=== PATIENT | female | born 1935 | race Caucasian/White ===

== ENCOUNTER 2018-03-15 10:25 | Emergency (ER) | payer OTHER, BC ==
[~2018-03-15] VITALS: Ht 157.5 cm; Wt 72.3 kg
[2018-03-15 10:30] VITALS: BP 122/66
--- NOTE | 2018-03-15 10:34 | NUR ---
Patient to bed 4. RN evaluating patient at bedside.
--- NOTE | 2018-03-15 10:35 | NUR ---
83/F BIB SON W/ C/O left wrist pain x2 days ago; denies fall or injury. hx a.fib, an xiety, HTN. L WRIST SWELLING & PAIN.AAOX4 WITH EVEN AND STEADY GAIT; LUNGS CLEAR BL. PATIENT STATES PAIN OF 9/10 AT THIS TIME. PATIENT POSITIONED FOR COMFORT; HOB ELEVATED; BEDRAILS UP X2; BED DOWN. ER MD MADE AWARE OF PT STATUS.
--- NOTE | 2018-03-15 10:37 | NUR ---
Dr. Guy evaluating patient at bedside.
[2018-03-15] MEDS ORDERED: HYDROcodone/APAP 5/325 MG 1 TAB TAB PO ONE (10:40)
--- NOTE | 2018-03-15 11:08 | NUR ---
X RAY AT BEDSIDE.
[2018-03-15 13:53] VITALS: BP 119/61
--- NOTE | 2018-03-15 13:53 | NUR ---
Patient discharged with v/s stable. Written and verbal after care instructions given and explained. Patient alert, oriented and verbalized understanding of instructions. Ambulatory with steady gait. All questions addressed prior to discharge. ID band removed. Patient advised to follow up with PMD. Rx of KEFLEX, PREDNISONE & NORCO given. Patient educated on indication of medication including possible reaction and side effects. Opportunity to ask questions provided and answered.
== END 2018-03-15 13:53 | disposition home or self-care (01) ==
LOC: MED 10:25
DX: M25.532 Pain in left wrist (principal); I10 Essential (primary) hypertension; M19.90 Unspecified osteoarthritis, unspecified site; Z88.0 Allergy status to penicillin; Z88.2 Allergy status to sulfonamides; Z90.710 Acquired absence of both cervix and uterus
CPT/HCPCS: 73110; 99284

== ENCOUNTER 2018-03-29 16:28 | Emergency (ER) | payer OTHER, BC ==
[~2018-03-29] VITALS: Ht 157.5 cm; Wt 76.7 kg
--- NOTE | 2018-03-29 16:33 | NUR ---
Patient transferred to bed 5 via wheelchair by tech. RN evaluating patient at bedside.
[2018-03-29 16:36] VITALS: BP 133/75
--- NOTE | 2018-03-29 16:45 | NUR ---
83f bib wheelchair with c/o sob x 1300 today. Patient states sob started while at home. Patient with clear speech with full sentences. RR are even and unlabored. Clear lung sounds bilaterally. Pulse ox is 95% on ra. Patient denies any cp, n/v/d, or cough. Patient is aox4. gcs=15. Skin is warm/dry/color appriopriate for ethnicity. Nonpitting edema to left lower extremitity. No acute resp distress at this time. Awaiting er md tafoya. Will continue to monitor.
[2018-03-29] MEDS ORDERED: APIX5TAB PO (16:51)
[2018-03-29] MEDS ORDERED: MAGN200T5 PO (16:51)
[2018-03-29] MEDS ORDERED: TRAM50TA1 PO (16:51)
[2018-03-29] MEDS ORDERED: VALS160T2 PO (16:51)
[2018-03-29] MEDS ORDERED: LEVA0.6318 INH (16:51)
[2018-03-29] MEDS ORDERED: METO50TA20 PO (16:51)
[2018-03-29] MEDS ORDERED: LORA-476 PO (16:51)
[2018-03-29] MEDS ORDERED: ORE25 PO (16:51)
[2018-03-29] MEDS ORDERED: LORazepam 0.5 MG TAB PO ONE (18:50)
[2018-03-29] MEDS ORDERED: ALBUTEROL 0.083% 2.5 MG/3 ML NEBU INH ONE (18:50)
[2018-03-29] MEDS ORDERED: methylPREDNISolone SS 125 MG/2 ML VIAL IVP ONE (18:50)
[2018-03-29] MEDS ORDERED: IPRATROPIUM 0.02% 0.5 MG/2.5 ML NEBU INH ONE (18:50)
--- NOTE | 2018-03-29 18:57 | NUR ---
Breathing treatment administered at bedside by respiratory therapist.
--- NOTE | 2018-03-29 19:17 | NUR ---
Calos block in ED - 03/29/18 at 1919 by AMY Pt report given to Michelle LIMA. Transfer of care at this time.
--- NOTE | 2018-03-29 19:19 | NUR ---
Pt report given to Nelsy LIMA. Transfer of care at this time.
--- NOTE | 2018-03-29 19:20 | NUR ---
REPORT RECEVIED FROM MARU LIMA
[2018-03-29 19:29] LABS: BASOPHILS # (AUTO) 0.1 K/uL (0.00-0.22); BASOPHILS % (AUTO) 0.4 % (0.0-2.0); EOSINOPHILS # (AUTO) 0.3 K/uL (0-0.4); EOSINOPHILS % (AUTO) 1.9 % (0.0-4.0); HEMATOCRIT 39.7 % (36-48); HEMOGLOBIN 13.1 g/dL (12.0-16.0); LYMPHOCYTES # (AUTO) 2.9 K/uL (2.5-16.5); LYMPHOCYTES % (AUTO) 20.8 % (20.5-51.1); MEAN CORPUSCULAR HEMOGLOBIN 30 pg (27-31); MEAN CORPUSCULAR HGB CONC 33 g/dL (33-37); MEAN CORPUSCULAR VOLUME 90.3 fL (80-94); MONOCYTES # (AUTO) 1.4 K/uL (0.8-1.0); MONOCYTES % (AUTO) 9.7 % (1.7-9.3); NEUTROPHILS # (AUTO) 9.4 K/uL (1.8-7.7); NEUTROPHILS % (AUTO) 67.2 % (42.2-75.2); PLATELET COUNT (AUTO) 300 K/uL (140-450); RED CELL DISTRIBUTION WIDTH 13.2 % (11.6-13.7)
[2018-03-29 19:46] LABS: ALBUMIN 3.4 g/dL (3.4-5.0); ANION GAP 12.5 (8-16); ASPARTATE AMINOTRANSFERASE 15 U/L (15-37); CARBON DIOXIDE 26.4 mmol/L (21-32); CHLORIDE 102 mmol/L (98-107); CREATININE 0.9 mg/dL (0.6-1.3); GLUCOSE 100 mg/dL (74-106); POTASSIUM 3.9 mmol/L (3.5-5.1); SODIUM SERUM 137 mmol/L (136-145); TOTAL BILIRUBIN 0.5 mg/dL (0.0-1.0); UREA NITROGEN, BLOOD 22 mg/dL (7-18)
[2018-03-29 20:08] LABS: PROTHROMBIN TIME 10.1 secs (10.8-13.4)
[2018-03-29 20:17] LABS: D-DIMER < 100 ng/ml (0-400)
--- NOTE | 2018-03-29 20:40 | NUR ---
Patient discharged with v/s stable. Written and verbal after care instructions given and explained. Patient alert, oriented and verbalized understanding of instructions. Ambulatory with steady gait. All questions addressed prior to discharge. ID band removed. Patient advised to follow up with PMD. Rx of AZITHROMYCIN AND PREDNISONE given. Patient educated on indication of medication including possible reaction and side effects. Opportunity to ask questions provided and answered.
[2018-03-29 20:44] VITALS: BP 137/87
== END 2018-03-29 20:40 | disposition home or self-care (01) ==
LOC: MED 16:28
DX: J44.1 Chronic obstructive pulmonary disease with (acute) exacerbation (principal); I10 Essential (primary) hypertension; I48.91 Unspecified atrial fibrillation; Z79.899 Other long term (current) drug therapy; Z88.0 Allergy status to penicillin; Z88.2 Allergy status to sulfonamides
CPT/HCPCS: 36415; 71045; 80053; 84484; 85025; 85379; 85610; 85730; 93005; 94640; 96374; 99285; J2930; J7613; J7644; Q0092

== ENCOUNTER 2018-04-07 08:15 | Emergency (ER) | payer OTHER, BC ==
[~2018-04-07] VITALS: Ht 162.6 cm; Wt 73.2 kg
[~2018-04-07 08:15] MED LIST: APIX5TAB PO; LEVA0.6318 INH; LORA-476 PO; MAGN200T5 PO; METO50TA20 PO; ORE25 PO; TRAM50TA1 PO; VALS160T2 PO
[2018-04-07 08:24] VITALS: BP 116/50
--- NOTE | 2018-04-07 08:31 | NUR ---
PT AMBULATED TO ER BED 09
[2018-04-07] MEDS ORDERED: predniSONE 20 MG TAB PO ONE (08:35)
[2018-04-07] MEDS ORDERED: ALBUTEROL 0.083% 2.5 MG/3 ML NEBU INH ONE (08:35)
[2018-04-07] MEDS ORDERED: ALBUTEROL SULFATE/IPRATROPIU 3 ML SOL IH ONE (08:35)
--- NOTE | 2018-04-07 08:40 | NUR ---
PATIENT PRESENTS TO ED WITH C/O CHRONIC SOB WORSE LAST NIGHT; SLEEP WITH HEAD ELEVATED, HX; STENT, BL BREAST CA. DENIES N/V/D; SKIN IS PINK/WARM/DRY; AAOX4 WITH EVEN AND STEADY GAIT; WHEEZING LUNG SOUNDS BL; HR EVEN AND REGULAR; PT DENIES ANY FEVER, CP AT THIS TIME; DENIES PAIN, VSS; PATIENT POSITIONED FOR COMFORT; HOB ELEVATED; BEDRAILS UP X2; BED DOWN. ER MD MADE AWARE OF PT STATUS.
--- NOTE | 2018-04-07 08:43 | NUR ---
REPORT GIVEN TO CLARENCE RANDHAWA
[2018-04-07 09:32] LABS: BASOPHILS # (AUTO) 0.1 K/uL (0.00-0.22); BASOPHILS % (AUTO) 0.6 % (0.0-2.0); EOSINOPHILS # (AUTO) 0.3 K/uL (0-0.4); EOSINOPHILS % (AUTO) 2.5 % (0.0-4.0); HEMATOCRIT 42.7 % (36-48); HEMOGLOBIN 14.2 g/dL (12.0-16.0); LYMPHOCYTES # (AUTO) 3.2 K/uL (2.5-16.5); LYMPHOCYTES % (AUTO) 28.3 % (20.5-51.1); MEAN CORPUSCULAR HEMOGLOBIN 30 pg (27-31); MEAN CORPUSCULAR HGB CONC 33 g/dL (33-37); MONOCYTES # (AUTO) 0.9 K/uL (0.8-1.0); MONOCYTES % (AUTO) 7.8 % (1.7-9.3); NEUTROPHILS # (AUTO) 6.8 K/uL (1.8-7.7); NEUTROPHILS % (AUTO) 60.8 % (42.2-75.2); PLATELET COUNT (AUTO) 297 K/uL (140-450); RED BLOOD CELL COUNT(AUTO) 4.74 MIL/uL (4.20-5.40); RED CELL DISTRIBUTION WIDTH 13.2 % (11.6-13.7); WHITE BLOOD COUNT (AUTO) 11.2 K/uL (4.8-10.8)
[2018-04-07 09:50] LABS: ANION GAP 12.4 (8-16); CARBON DIOXIDE 28.2 mmol/L (21-32); CHLORIDE 96 mmol/L (98-107); CREATININE 1.2 mg/dL (0.6-1.3); GLUCOSE 188 mg/dL (74-106); POTASSIUM 3.6 mmol/L (3.5-5.1); SODIUM SERUM 133 mmol/L (136-145); UREA NITROGEN, BLOOD 14 mg/dL (7-18)
[2018-04-07 09:56] LABS: ALBUMIN 3.5 g/dL (3.4-5.0); ASPARTATE AMINOTRANSFERASE 14 U/L (15-37); TOTAL BILIRUBIN 0.8 mg/dL (0.0-1.0)
[2018-04-07 09:59] LABS: PROTHROMBIN TIME 10.6 secs (10.8-13.4)
[2018-04-07 10:30] LABS: D-DIMER < 100 ng/ml (0-400)
[2018-04-07 10:50] VITALS: BP 116/50
== END 2018-04-07 10:50 | disposition home or self-care (01) ==
LOC: MED 08:15
DX: R06.02 Shortness of breath (principal); I48.91 Unspecified atrial fibrillation; J44.9 Chronic obstructive pulmonary disease, unspecified; I10 Essential (primary) hypertension; Z88.0 Allergy status to penicillin; Z88.1 Allergy status to other antibiotic agents; Z79.899 Other long term (current) drug therapy
CPT/HCPCS: 36415; 71045; 80053; 83880; 84484; 85025; 85379; 85610; 85730; 93005; 94640; 99285; J7512; J7613; J7620; Q0092

== ENCOUNTER 2018-04-16 20:01 | Emergency (ER) | payer OTHER, BC ==
[~2018-04-16] VITALS: Ht 162.6 cm; Wt 74.8 kg
[2018-04-16 20:15] VITALS: BP 134/79
--- NOTE | 2018-04-16 20:19 | NUR ---
TO LOBBY A/W BED, AND FOR XRAY , KEI, YAQUELIN, MANDEEP NOTED
--- NOTE | 2018-04-16 20:29 | NUR ---
PT TAKEN TO BED 7
--- NOTE | 2018-04-16 20:32 | NUR ---
PATIENT PRESENTS TO ED WITH SOB AND GENERALIZED WEAKNESS X1 DAY. PATIENT STATES CHEST PAIN NON RADIATING; PT DENIES N/V/D; SKIN IS PINK/WARM/DRY; AAOX4 WITH EVEN AND STEADY GAIT; LUNGS CLEAR BL; HR EVEN AND REGULAR; PT DENIES ANY FEVER OR COUGH AT THIS TIME; PATIENT STATES PAIN OF 4/10 AT THIS TIME; VSS; PATIENT POSITIONED FOR COMFORT; HOB ELEVATED; BEDRAILS UP X1; BED DOWN. ER MD MADE AWARE OF PT STATUS.
--- NOTE | 2018-04-16 21:00 | NUR ---
X-Ray at bedside.
--- NOTE | 2018-04-16 21:24 | NUR ---
Dr. Bah evaluating patient at bedside.
[2018-04-16] MEDS ORDERED: ALBUTEROL SULFATE/IPRATROPIU 3 ML SOL IH ONE (21:35)
[2018-04-16 22:04] LABS: BASOPHILS # (AUTO) 0.1 K/uL (0.00-0.22); BASOPHILS % (AUTO) 0.7 % (0.0-2.0); EOSINOPHILS # (AUTO) 0.2 K/uL (0-0.4); EOSINOPHILS % (AUTO) 2.5 % (0.0-4.0); HEMATOCRIT 40.4 % (36-48); HEMOGLOBIN 13.6 g/dL (12.0-16.0); LYMPHOCYTES # (AUTO) 2.7 K/uL (2.5-16.5); LYMPHOCYTES % (AUTO) 26.6 % (20.5-51.1); MEAN CORPUSCULAR HEMOGLOBIN 30 pg (27-31); MEAN CORPUSCULAR HGB CONC 34 g/dL (33-37); MEAN CORPUSCULAR VOLUME 89.7 fL (80-94); MONOCYTES # (AUTO) 1.1 K/uL (0.8-1.0); NEUTROPHILS # (AUTO) 5.9 K/uL (1.8-7.7); NEUTROPHILS % (AUTO) 59.2 % (42.2-75.2); PLATELET COUNT (AUTO) 296 K/uL (140-450); RED CELL DISTRIBUTION WIDTH 13.2 % (11.6-13.7)
[2018-04-16 22:20] LABS: ANION GAP 11.4 (8-16); CARBON DIOXIDE 27.2 mmol/L (21-32); CHLORIDE 100 mmol/L (98-107); GLUCOSE 127 mg/dL (74-106); POTASSIUM 3.6 mmol/L (3.5-5.1); SODIUM SERUM 135 mmol/L (136-145); UREA NITROGEN, BLOOD 17 mg/dL (7-18)
[2018-04-16 22:25] LABS: ALBUMIN 3.4 g/dL (3.4-5.0); ASPARTATE AMINOTRANSFERASE 15 U/L (15-37); TOTAL BILIRUBIN 0.7 mg/dL (0.0-1.0)
[2018-04-16] MEDS ORDERED: ASPIRIN 81 MG TAB.CHEW PO ONE (22:30)
[2018-04-16 23:03] VITALS: BP 127/66
== END 2018-04-16 23:04 | disposition home or self-care (01) ==
LOC: MED 20:01
DX: J44.1 Chronic obstructive pulmonary disease with (acute) exacerbation (principal); I10 Essential (primary) hypertension; I48.91 Unspecified atrial fibrillation; R94.31 Abnormal electrocardiogram [ECG] [EKG]; Z79.899 Other long term (current) drug therapy; Z88.0 Allergy status to penicillin; Z88.2 Allergy status to sulfonamides
CPT/HCPCS: 36415; 71045; 80053; 84484; 85025; 93005; 94640; 99285; J7620

== ENCOUNTER 2018-05-08 19:23 | Emergency (ER) | payer OTHER, BC ==
[~2018-05-08] VITALS: Ht 162.6 cm; Wt 72.6 kg
[2018-05-08 19:35] VITALS: BP 146/66
--- NOTE | 2018-05-08 19:38 | NUR ---
TO BED # 2 AMB, REPORT GIVEN TO MENG LIMA.
--- NOTE | 2018-05-08 19:38 | NUR ---
83/F CAME IN W C/O INTERMITTENT SOB FOR 2 WEEKS. PT REPORTS SHE HAS BEEN TAKING ALBUTEROL INH WITHOUT IMPROVEMENT. ALL LUNG SOUNDS CBTA BUT WITH RHONCHI AT KAROL BASES. 18 RR EVEN AND UNLABORED, PT ABLE TO SPEAK FULL SENTENCES WITHOUT DIFFICULTY, 96% RA. PMH: COPD
--- NOTE | 2018-05-08 20:53 | NUR ---
PT C/O 08/20 DULL RT SIDE CHEST PAIN WITH NAUSEA
[2018-05-08] MEDS ORDERED: IPRATROPIUM 0.02% 0.5 MG/2.5 ML NEBU INH ONE (21:50)
[2018-05-08] MEDS ORDERED: ALBUTEROL 0.083% 2.5 MG/3 ML NEBU INH ONE (21:50)
[2018-05-08 22:35] LABS: BASOPHILS # (AUTO) 0.1 K/uL (0.00-0.22); BASOPHILS % (AUTO) 0.6 % (0.0-2.0); EOSINOPHILS # (AUTO) 0.2 K/uL (0-0.4); EOSINOPHILS % (AUTO) 1.7 % (0.0-4.0); HEMATOCRIT 39.5 % (36-48); HEMOGLOBIN 13.1 g/dL (12.0-16.0); LYMPHOCYTES # (AUTO) 2.1 K/uL (2.5-16.5); LYMPHOCYTES % (AUTO) 15.7 % (20.5-51.1); MEAN CORPUSCULAR HEMOGLOBIN 30 pg (27-31); MEAN CORPUSCULAR HGB CONC 33 g/dL (33-37); MEAN CORPUSCULAR VOLUME 89.8 fL (80-94); MONOCYTES # (AUTO) 1.3 K/uL (0.8-1.0); MONOCYTES % (AUTO) 9.8 % (1.7-9.3); NEUTROPHILS # (AUTO) 9.9 K/uL (1.8-7.7); NEUTROPHILS % (AUTO) 72.2 % (42.2-75.2); PLATELET COUNT (AUTO) 263 K/uL (140-450); RED CELL DISTRIBUTION WIDTH 12.8 % (11.6-13.7); WHITE BLOOD COUNT (AUTO) 13.7 K/uL (4.8-10.8)
[2018-05-08 22:40] LABS: APPEARANCE,URINE CLEAR (CLEAR); BILIRUBIN,URINE NEGATIVE (NEGATIVE); BLOOD, URINE NEGATIVE (NEGATIVE); COLOR,URINE YELLOW (YELLOW); LEUKOCYTE ESTERASE ,URINE NEGATIVE (NEGATIVE); NITRITE, URINE NEGATIVE (NEGATIVE); UGLUCOSE NEGATIVE (NEGATIVE)
[2018-05-08 22:43] LABS: CARBON DIOXIDE 23.7 mmol/L (21-32); CHLORIDE 100 mmol/L (98-107); CREATININE 0.9 mg/dL (0.6-1.3); GLUCOSE 160 mg/dL (74-106); POTASSIUM 3.7 mmol/L (3.5-5.1); SODIUM SERUM 135 mmol/L (136-145); UREA NITROGEN, BLOOD 12 mg/dL (7-18)
[2018-05-08 22:50] LABS: ALBUMIN 3.3 g/dL (3.4-5.0); ASPARTATE AMINOTRANSFERASE 14 U/L (15-37)
--- NOTE | 2018-05-08 23:24 | NUR ---
Patient discharged with v/s stable. Written and verbal after care instructions given and explained. Patient alert, oriented and verbalized understanding of instructions. Ambulatory with steady gait. All questions addressed prior to discharge. ID band removed. Patient advised to follow up with PMD. Rx of ALBUTEROL AND PREDNISONE given. Patient educated on indication of medication including possible reaction and side effects. Opportunity to ask questions provided and answered.
[2018-05-08 23:27] VITALS: BP 129/81
== END 2018-05-08 23:24 | disposition home or self-care (01) ==
LOC: MED 19:23
DX: J44.9 Chronic obstructive pulmonary disease, unspecified (principal); I11.0 Hypertensive heart disease with heart failure; I50.9 Heart failure, unspecified; I48.91 Unspecified atrial fibrillation; Z86.711 Personal history of pulmonary embolism; Z88.0 Allergy status to penicillin; Z88.2 Allergy status to sulfonamides
CPT/HCPCS: 36415; 71045; 80053; 81003; 83880; 84484; 85025; 93005; 94640; 99285; J7613; J7644